=== PATIENT | male | born 1985 | race African-American/Black ===

== ENCOUNTER → 2023-11-03 | Outpatient (CLI) | payer OTHER, SELFPAY ==
--- NOTE | 2023-11-03 13:33 | CT_ITS ---
STUDY: CT CHEST WITHOUT CONTRAST REASON FOR EXAM: Male, 38 years old. Encounter for screening for coronary artery disease. Cardiac over read examination. RADIATION DOSAGE (If Supplied By Facility): CTDIvol = ( 67.75 ) mGy, DLP = ( 6644.54 ) mGycm TECHNIQUE: Transaxial imaging was performed without the administration of intravenous contrast material. Individualized dose optimization techniques were used for this CT. COMPARISON: No relevant priors. FINDINGS: CHEST The lungs are normal. There is no demonstrated pleural abnormality. Normal heart and pericardium. No coronary artery calcification is seen. Normal mediastinum. Normal hilar regions. Normal unenhanced pulmonary arteries. Normal aorta arch and descending thoracic aorta. Normal osseous structures. Subcentimeter cysts are seen in the upper aspect of the right and left lobe of the liver. CT/Limited Chest CT Cardiac Only IMPRESSION: Normal unenhanced CT chest. Electronically Signed: Marc Garvin MD at 8:58 EST ,
[2023-11-03 14:07] VITALS: BP 143/87; PULSE 49; RESP 16; TEMP 35.9; O2SAT 99; BMI 34.0
[2023-11-03 14:28] LABS: CREATININE FINGERSTICK 1.1 mg/dL (0.70-1.30); EGFR FINGERSTICK > 60.0000 mL/min (>60)
[2023-11-03 14:29] VITALS: BP 143/87; PULSE 49
[2023-11-03] MEDS: Nitroglycerin SL (ED/IMG/CATH) 0.4 MG TABLET 0.400000000000000022 MG SL (14:29)
[2023-11-03 14:44] VITALS: BP 134/63; PULSE 54; RESP 16; O2SAT 99
--- NOTE | 2023-11-04 07:34 | CCTA.WCONT ---
CCTA w/Cont Coronary Arteries Date of Study:: 11/03/23 Screening for coronary disease Coronary Calcium Scoring: High-resolution Computed Tomographic imaging of the chest was performed on [11/03/2023], with particular attention paid to the coronary arteries. Intravenous contrast agent was administered per protocol and images reconstructed and displayed. LEFT MAIN CORONARY ARTERY: Normal size arising from the left coronary cusp and bifurcating to left anterior descending artery and left circumflex artery [] LEFT ANTERIOR DESCENDING CORONARY ARTERY: Large size vessel with no significant atherosclerotic plaquing noted in 2 diagonal branches noted. [] LEFT CIRCUMFLEX CORONARY ARTERY: Medium size vessel with no significant atherosclerotic plaquing noted [] RIGHT CORONARY ARTERY: Dominant right coronary artery arising from the right coronary cusp with a tortuous course with no significant atherosclerotic disease noted. Conclusion: No significant atherosclerotic plaquing or obstructive coronary disease noted.
== END | disposition home or self-care (01) ==
PROVIDERS: PCP Internal Medicine; Referring Provider Internal Medicine; Visit Provider Internal Medicine
DX: Z13.6 Encounter for screening for cardiovascular disorders (principal)
CPT/HCPCS: 75574; 76380; Q9967